=== PATIENT | male | born 1950 | race Caucasian/White ===

== ENCOUNTER 2019-07-01 09:44 | Inpatient (IN) ==
[2019-07-01 13:28] LABS: Basophils % 0.3 %; Eosinophils # 0.1 K/mcL (0.0-0.6); Eosinophils % 1.1 %; Hematocrit 40.8 % (37.5-50.1); Hemoglobin 13.2 g/dL (12.9-16.9); Immature Granulocytes % 0.6 % (0-4); Lymphocytes # 3.4 K/mcL (0.6-4.6); Lymphocytes % 27.6 %; Mean Corpuscular HGB Conc 32.4 g/dL (31.6-35.5); Mean Corpuscular Hemoglobin 28.9 pg (28.0-33.3); Mean Corpuscular Volume 89.3 fL (83.0-100.0); Mean Platelet Volume 12.8 fL (9.4-12.4); Monocytes # 0.8 K/mcL (0.0-1.3); Monocytes % 6.7 %; Neutrophils # 7.9 K/mcL (1.6-8.9); Platelet Count 194 K/mcL (140-400); Red Blood Count 4.57 M/mcL (4.19-5.50); Segmented Neutrophils % 63.7 %; White Blood Count 12.3 K/mcL (4.3-11.1)
[2019-07-01 13:37] LABS: Bilirubin,Urine Moderate (Negative); Blood,Urine Large (Negative); Clarity,Urine Turbid (Clear); Color,Urine Red (Yellow); Glucose,Urine (UA) Normal (Normal); Ketones,Urine Trace mg/dL (Negative); Leukocyte Esterase,Urine Small (Negative); Nitrite,Urine Positive (Negative); Protein,Urine >=300 mg/dL (Neg-Trace); Specific Gravity,Urine 1.014 (1.010-1.025); Urobilinogen,Urine Normal (Normal)
[2019-07-01 15:33] LABS: Calcium 8.8 mg/dL (8.6-10.3); Potassium 4.4 mEq/L (3.5-5.1)
[2019-07-01] MEDS ORDERED: cefTRIAXone 1,000 MG in Water for inj. (sterile) 10 ML IVP ONE (15:34)
[2019-07-01] MEDS ORDERED: Morphine Sulfate 2 MG/ML SYRINGE IVP ONE (16:18)
[2019-07-01] MEDS ORDERED: Ondansetron 4 MG/2 ML VIAL ONE (16:50)
[2019-07-01] MEDS ORDERED: Ondansetron 4 MG/2 ML VIAL IVP PRN ×2 (16:52→17:10)
[2019-07-01] MEDS ORDERED: Naloxone 0.4 MG/ML INJ IVP PRN ×2 (17:10→17:14)
[2019-07-01] MEDS ORDERED: *HR* OxyCODONE Immed Rel 5 MG TABLET PO PRN (17:14)
[2019-07-01] MEDS ORDERED: Acetaminophen 325 MG TABLET PO PRN (17:14)
[2019-07-01] MEDS ORDERED: *HR* Dextrose 50 % in Water (Syg) 50 ML SYRINGE IVP PRN (17:15)
[2019-07-01] MEDS ORDERED: D5% in Water 1,000 ML IVC PRN (17:15)
[2019-07-01] MEDS ORDERED: Dextrose Gel 15 GM/37.5 ML TUBE PO PRN ×2 (17:15)
[2019-07-01] MEDS: Insulin DETEMIR 100 UNIT/ML X5UNITS SQ SCH (20:54)
[2019-07-02] MEDS: Nicotine 7 MG PATCH.TD24 TD SCH ×2 (01:36→10:18)
[2019-07-02 05:40] LABS: Basophils # 0.1 K/mcL (0.0-0.2); Basophils % 0.5 %; Eosinophils # 0.3 K/mcL (0.0-0.6); Eosinophils % 2.6 %; Hematocrit 38.9 % (37.5-50.1); Hemoglobin 12.4 g/dL (12.9-16.9); Immature Granulocytes % 0.7 % (0-4); Lymphocytes # 3.3 K/mcL (0.6-4.6); Lymphocytes % 33.8 %; Mean Corpuscular HGB Conc 31.9 g/dL (31.6-35.5); Mean Corpuscular Volume 91.1 fL (83.0-100.0); Mean Platelet Volume 13.1 fL (9.4-12.4); Monocytes # 0.9 K/mcL (0.0-1.3); Monocytes % 8.9 %; Neutrophils # 5.2 K/mcL (1.6-8.9); Platelet Count 146 K/mcL (140-400); Red Blood Count 4.27 M/mcL (4.19-5.50); Segmented Neutrophils % 53.5 %; White Blood Count 9.7 K/mcL (4.3-11.1)
[2019-07-02 05:48] LABS: Prothrombin Time 11.6 Seconds (9.4-12.1)
[2019-07-02 06:00] LABS: Calcium 8.5 mg/dL (8.6-10.3); Potassium 4.2 mEq/L (3.5-5.1)
[2019-07-02] MEDS: Insulin LISPRO 300 UNITS/3 ML VIAL SQ SCH ×6 (08:36→17:53)
[2019-07-02] MEDS ORDERED: NON-FORMULARY MEDICATION 1 EACH EACH (Ezetimibe [Zetia] 10 MG) PO SCH (09:00)
[2019-07-02] MEDS: Finasteride 5 MG TABLET PO SCH (10:17)
[2019-07-02] MEDS: Insulin DETEMIR 100 UNIT/ML X5UNITS SQ SCH ×2 (10:18→21:58)
[2019-07-02] MEDS: 0.9 % Sodium Chloride 1,000 ML IVC SCH (10:19)
[2019-07-02] MEDS: traMADol 50 MG TABLET PO PRN ×2 (10:20→16:23)
[2019-07-02] MEDS ORDERED: Gabapentin 400 MG CAPSULE PO SCH (21:00)
[2019-07-03] MEDS: 0.9 % Sodium Chloride 1,000 ML IVC SCH (01:33)
[2019-07-03] MEDS ORDERED: 0.9 % Sodium Chloride 1,000 ML IVC SCH (02:00)
[2019-07-03 04:27] LABS: Basophils % 0.4 %; Eosinophils # 0.2 K/mcL (0.0-0.6); Eosinophils % 2.4 %; Hematocrit 37.3 % (37.5-50.1); Hemoglobin 11.9 g/dL (12.9-16.9); Immature Granulocytes % 0.8 % (0-4); Lymphocytes # 2.7 K/mcL (0.6-4.6); Lymphocytes % 29.6 %; Mean Corpuscular HGB Conc 31.9 g/dL (31.6-35.5); Mean Corpuscular Hemoglobin 29.2 pg (28.0-33.3); Mean Corpuscular Volume 91.6 fL (83.0-100.0); Monocytes # 0.9 K/mcL (0.0-1.3); Monocytes % 10.1 %; Neutrophils # 5.2 K/mcL (1.6-8.9); Platelet Count 135 K/mcL (140-400); Red Blood Count 4.07 M/mcL (4.19-5.50); Red Cell Distribution Width 13.7 % (11.5-14.5); Segmented Neutrophils % 56.7 %; White Blood Count 9.2 K/mcL (4.3-11.1)
[2019-07-03 04:40] LABS: Calcium 8.2 mg/dL (8.6-10.3); Potassium 4.1 mEq/L (3.5-5.1)
[2019-07-03 06:43] VITALS: BP 169/80
[2019-07-03] MEDS: Insulin LISPRO 300 UNITS/3 ML VIAL SQ SCH ×2 (08:36→08:44)
[2019-07-03] MEDS: Finasteride 5 MG TABLET PO SCH (08:42)
[2019-07-03] MEDS: Nicotine 7 MG PATCH.TD24 TD SCH (08:43)
[2019-07-03] MEDS: Insulin DETEMIR 100 UNIT/ML X5UNITS SQ SCH (08:44)
== END 2019-07-03 11:28 | disposition home or self-care (01) | DRG 699 ==
LOC: 3ANU 09:44 → EMEROOARM 09:44 → SUATTDRO 17:20 → 3ANU 18:09
PROVIDERS: ADMIT Internal Medicine; ATTEND Internal Medicine